=== PATIENT | female | born 1980 | race Caucasian/White ===

== ENCOUNTER 2021-06-26 03:29 | Inpatient (IN) | payer OTHER ==
[2021-06-26] VITALS (7 sets, daily range): BP systolic 102–127; BP diastolic 65–80
[~2021-06-26] VITALS: Ht 172 cm; Wt 75.3 kg
[2021-06-26] MEDS ORDERED: LACTATED RINGERS 1,000 ML IV ONE ×4 (04:00→06:45)
[2021-06-26] MEDS ORDERED: ACETAMINOPHEN 500 MG TAB (TYLENOL) PO PRN (04:00)
[2021-06-26 04:03] LABS: BASOPHILS # (AUTO) 0.1 10^3/uL (0.0-0.1); BASOPHILS % (AUTO) 1 % (0-10); EOSINOPHILS # (AUTO) 0.1 10^3/uL (0.0-0.3); EOSINOPHILS % (AUTO) 1 % (0-10); HEMATOCRIT 33 % (35-52); HEMOGLOBIN 9.4 g/dL (11.5-16.0); LYMPHOCYTES # (AUTO) 4.2 10^3/uL (1.0-4.0); LYMPHOCYTES % (AUTO) 25 % (12-44); MEAN CORPUSCULAR HEMOGLOBIN 19 pg (25-34); MEAN CORPUSCULAR HGB CONC 29 g/dL (32-36); MEAN CORPUSCULAR VOLUME 67 fL (80-99); MEAN PLATELET VOLUME 9.6 fL (9.0-12.2); MONOCYTES # (AUTO) 1.4 10^3/uL (0.0-1.0); MONOCYTES % (AUTO) 8 % (0-12); NEUTROPHILS # (AUTO) 10.9 10^3/uL (1.8-7.8); NEUTROPHILS % (AUTO) 65 % (42-75); PLATELET COUNT 432 10^3/uL (130-400); WHITE BLOOD COUNT 16.7 10^3/uL (4.3-11.0)
--- NOTE | 2021-06-26 04:10 | ED General ---
General Chief Complaint: Abdominal/GI Problems Stated Complaint: RT SIDED ABD/CHEST PAIN COVID SYMPTOMS Nursing Triage Note: PT PRESENTS TO THE ED VIA EMS TO ROOM SEVEN WITH R SIDED ABD. PAIN AND EXERTIONAL SOB THAT HAS BEEN PROGRESSIVELY WORSENING FOR THE LAST THREE DAYS. VERBALIZES FEVER AND CHILLS, PT USED TYLENOL AT 2200 FOR A SUSPECTED FEVER TONIGHT. Source of Information: Patient History of Present Illness Date Seen by Provider: Jun 26, 2021 Time Seen by Provider: 03:27 Initial Comments PT ARRIVES VIA EMS PT HAS BEEN STAYING WITH A FRIEND, THEIR S.O. AND STEP SON PT C/O RIGHT UPPER ABDOMINAL PAIN/ RIGHT LOWER/LATERAL CHEST PAIN AND RIGHT FLANK PAIN FOR THE LAST COUPLE OF DAYS C/O NAUSEA, NO VOMITING HAS HAD DIARRHEA X 5. NO BLACK/BLOODY/TARRY STOOLS HAS LOST HER TASTE THE LAST COUPLE OF DAYS + SWEATS AND CHILLS, HAS NOT CHECKED TEMP AT ANY TIME + HEADACHE + BODY ACHES HAS HAD SOME SHORTNESS OF BREATH WITH EXERTION THE LAST COUPLE O F DAYS NO SIGNIFICANT COUGH NO SORE THROAT NO URINARY SYMPTOMS HAS HAD DECREASED APPETITE PT TOOK TYLENOL A COUPLE OF HOURS AGO, OTHERWISE HAS NOT TAKEN ANYTHING FOR SYMPTOMS AT ANY TIME PT HAS NOT RECEIVED COVID-19 VACCINE. OTHERS IN HOME ARE NOT ILL LMP SOMETIME IN MAY, HAS HAD BTL. DENIES ANY MEDICAL PROBLEMS, BUT NEVER GOES TO PCP: NONE--MOVED HERE 2 YEARS AGO FROM [place] AND HAS NEVER ESTABLISHED WITH A DR MURRAY Allergies and Home Medications Allergies Coded Allergies: aspirin (Verified Allergy, Unknown, 06/26/21) codeine (Verified Allergy, Unknown, 06/26/21) Patient Home Medication List Home Medication List Reviewed: Yes Review of Systems Review of Systems Constitutional: see HPI, chills, diaphoresis, malaise, weakness EENTM: see HPI, nose congestion Respiratory: see HPI, dyspnea on exertion Cardiovascular: see HPI, chest pain; No edema, No syncope Gastrointestinal: see HPI, abdominal pain, diarrhea, loss of appetite, nausea; No vomiting Genitourinary: no symptoms reported : No LMP: May 13, 2021 Musculoskeletal: see HPI, back pain Skin: no symptoms reported; No rash Psychiatric/Neurological: See HPI, Headache Hematologic/Lymphatic: No Symptoms Reported Immunological/Allergic: no symptoms reported Past Spugxku-Qidieb-Qqbkld Hx Patient Social History Tobacco Use?: Yes (1 PPD) Tobacco type used: Cigarettes Smoking Status: Current Everyday Smoker Substance use?: Yes Substance type: Marijuana Substance frequency: Once in a while Alcohol Use?: No Past Medical History Surgery/Hospitalization HX: BTL 2002 Surgeries: Yes Tubal Ligation Respiratory: No Cardiac: No Neurological: No Last Menstrual Period: May 13, 2021 Reproductive Disorders: No [facility] History: Tubal Ligation Genitourinary: No Gastrointestinal: No Musculoskeletal: No Endocrine: No HEENT: Yes (POOR DENTITION) Cancer: No Psychosocial: No Integumentary: No Blood Disorders: No Physical Exam Vital Signs Vital Signs - First Documented 06/26/21 03:30 Temp 37.8 Pulse 124 Resp 22 B/P (MAP) 116/91 (99) Pulse Ox 100 O2 Delivery Room Air Capillary Refill : Less Than 3 Seconds Height, Weight, BMI Height: '" Weight: lbs. oz. kg; 22.00 BMI Method: General Appearance: No Apparent Distress, WD/WN, Other (UNKEMPT, DIRTY, MALODOROUS) HEENT: Other (POOR DENTITION WITH MULTIPLE MISSING TEETH) Neck: Normal Inspection Respiratory: Normal Breath Sounds, No Accessory Muscle Use, No Respiratory Distress, Other (RIGHT LOWER CHEST/RIB TENDERNESS--ANTERIOR/LATERAL/POSTERIOR) Cardiovascular: No Edema, No JVD, No Murmur, Normal Peripheral Pulses, Tachycardia (130) Gastrointestinal: Normal Bowel Sounds, No Organomegaly, No Pulsatile Mass, Soft, Tenderness (DIFFUSE UPPER ABDOMINAL TENDERNESS, MOST TENDER IN EPIGASTRIC AND RIGHT UPPER QUADRANT, AND ALSO TENDERNESS TO RIGHT FLANK) Back: No Vertebral Tenderness, CVA Tenderness (R) Extremity: Normal Range of Motion, No Pedal Edema Neurologic/Psychiatric: Alert, Oriented x3, No Motor/Sensory Deficits, Normal Mood/Affect, adult and pediatric neurologist II-XII Norm as Tested Skin: Normal Color, Warm/Dry, Tattoos/Piercings Focused Exam Sepsis Stage: Severe Sepsis Possible Source: GI Tract/Intra-Abdominal Lactate Level 06/26/21 03:37: Lactic Acid Level 1.31 Time of Focused Exam: 06:30 Respiratory: Normal Breath Sounds, No Accessory Muscle Use, No Respiratory Distress Cardiovascular: Regular Rate, Rhythm, No Edema, No Murmur Skin: normal color, warm/dry Lactic Acid Level Laboratory Tests Test 06/26/21 03:37 Lactic Acid Level 1.31 MMOL/L (0.50-2.00) Within 3hrs of presentation: Admin fluids, Admin ABX, Blood cultures prior to ABX's, Focus exam, Lactate level Progress/Results/Core Measures Suspected Sepsis SIRS Temperature: Pulse: 124 Respiratory Rate: 22 Laboratory Tests 06/26/21 03:37: White Blood Count 16.7H Blood Pressure 116 /91 Mean: 99 06/26/21 03:37: Lactic Acid Level 1.31 Laboratory Tests 06/26/21 03:37: Creatinine 0.72, INR Comment 1.1, Platelet Count 432H, Total Bilirubin 0.5 Results/Orders Lab Results Laboratory Tests Test 06/26/21 03:37 06/26/21 05:11 Range/Units White Blood Count 16.7 H 4.3-11.0 10^3/uL Red Blood Count 4.93 3.80-5.11 10^6/uL Hemoglobin 9.4 L 11.5-16.0 g/dL Hematocrit 33 L 35-52 % Mean Corpuscular Volume 67 L 80-99 fL Mean Corpuscular Hemoglobin 19 L 25-34 pg Mean Corpuscular Hemoglobin Concent 29 L 32-36 g/dL Red Cell Distribution Width 18.5 H 10.0-14.5 % Platelet Count 432 H 130-400 10^3/uL Mean Platelet Volume 9.6 9.0-12.2 fL Immature Granulocyte % (Auto) 1 % Neutrophils (%) (Auto) 65 42-75 % Lymphocytes (%) (Auto) 25 12-44 % Monocytes (%) (Auto) 8 0-12 % Eosinophils (%) (Auto) 1 0-10 % Basophils (%) (Auto) 1 0-10 % Neutrophils # (Auto) 10.9 H 1.8-7.8 10^3/uL Lymphocytes # (Auto) 4.2 H 1.0-4.0 10^3/uL Monocytes # (Auto) 1.4 H 0.0-1.0 10^3/uL Eosinophils # (Auto) 0.1 0.0-0.3 10^3/uL Basophils # (Auto) 0.1 0.0-0.1 10^3/uL Immature Granulocyte # (Auto) 0.1 0.0-0.1 10^3/uL Neutrophils % (Manual) 70 % Lymphocytes % (Manual) 23 % Monocytes % (Manual) 5 % Band Neutrophils 2 % Clumped Platelets SLIGHT Polychromasia SLIGHT Hypochromasia MODERATE Microcytosis MODERATE Spherocytes SLIGHT Neeraj Cells SLIGHT Elliptocytes SLIGHT Acanthocytes SLIGHT Erythrocyte Sedimentation Rate 29 H 0-20 MM/HR Prothrombin Time 14.2 12.2-14.7 SEC INR Comment 1.1 0.8-1.4 Activated Partial Thromboplast Time 28 24-35 SEC D-Dimer 1.35 H 0.00-0.49 UG/ML Sodium Level 135 135-145 MMOL/L Potassium Level 3.8 3.6-5.0 MMOL/L Chloride Level 102 98-107 MMOL/L Carbon Dioxide Level 24 21-32 MMOL/L Anion Gap 9 5-14 MMOL/L Blood Urea Nitrogen 14 7-18 MG/DL Creatinine 0.72 0.60-1.30 MG/DL Estimat Glomerular Filtration Rate 90 BUN/Creatinine Ratio 19 Glucose Level 110 H 70-105 MG/DL Lactic Acid Level 1.31 0.50-2.00 MMOL/L Calcium Level 9.9 8.5-10.1 MG/DL Corrected Calcium 10.0 8.5-10.1 MG/DL Magnesium Level 2.3 1.6-2.4 MG/DL Total Bilirubin 0.5 0.1-1.0 MG/DL Aspartate Amino Transf (AST/SGOT) 23 5-34 U/L Alanine Aminotransferase (ALT/SGPT) 23 0-55 U/L Alkaline Phosphatase 109 40-136 U/L Lactate Dehydrogenase 212 125-220 U/L Troponin I < 0.028 <0.028 NG/ML C-Reactive Protein High Sensitivity 15.93 H 0.00-0.50 MG/DL Total Protein 8.0 6.4-8.2 GM/DL Albumin 3.9 3.2-4.5 GM/DL Amylase Level 36 25-125 U/L Lipase 31 8-78 U/L Procalcitonin 0.15 H <0.10 NG/ML Serum Test, Qualitative NEGATIVE NEGATIVE Serum Alcohol < 10 <10 MG/DL SARS-CoV-2 RNA (RT-PCR) Not Detected Not Detecte Urine Color YELLOW Urine Clarity CLEAR Urine pH 6.0 5-9 Urine Specific [place] <=1.005 1.016-1.022 Urine Protein NEGATIVE NEGATIVE Urine Glucose (UA) NEGATIVE NEGATIVE Urine Ketones NEGATIVE NEGATIVE Urine Nitrite NEGATIVE NEGATIVE Urine Bilirubin NEGATIVE NEGATIVE Urine Urobilinogen 0.2 < = 1.0 MG/DL Urine Leukocyte Esterase 1+ H NEGATIVE Urine RBC (Auto) NEGATIVE NEGATIVE Urine RBC NONE /HPF Urine WBC 10-25 H /HPF Urine Squamous Epithelial Cells 0-2 /HPF Urine Crystals NONE /LPF Urine Bacteria FEW H /HPF Urine Casts NONE /LPF Urine Mucus NEGATIVE /LPF Urine Culture Indicated CULTURE PENDING Urine Opiates Screen NEGATIVE NEGATIVE Urine Oxycodone Screen NEGATIVE NEGATIVE Urine Methadone Screen NEGATIVE NEGATIVE Urine Propoxyphene Screen NEGATIVE NEGATIVE Urine Barbiturates Screen NEGATIVE NEGATIVE Ur Tricyclic Antidepressants Screen NEGATIVE NEGATIVE Urine Phencyclidine Screen NEGATIVE NEGATIVE Urine Amphetamines Screen NEGATIVE NEGATIVE Urine Methamphetamines Screen NEGATIVE NEGATIVE Urine Benzodiazepines Screen NEGATIVE NEGATIVE Urine Cocaine Screen NEGATIVE NEGATIVE Urine Cannabinoids Screen NEGATIVE NEGATIVE My Orders Orders - DILCIA MANLEY DO Ed Iv/Invasive Line Start (06/26/21 03:46) Monitor-Rhythm Ecg Trace Only (06/26/21 03:46) Cbc With Automated Diff (06/26/21 03:46) Comprehensive Metabolic Panel (06/26/21 03:46) Fibrin Degradation Products (06/26/21 03:46) Procalcitonin (Pct) (06/26/21 03:46) Hs C Reactive Protein (06/26/21 03:46) Erythrocyte Sedimentation Rate (06/26/21 03:46) LDH (06/26/21 03:46) Blood Culture (06/26/21 03:46) Chest 1 View, Ap/Pa Only (06/26/21 03:46) Covid 19 Inhouse Test (06/26/21 03:46) Sputum Culture (06/26/21 03:46) Urinalysis (06/26/21 03:46) Urine Culture (06/26/21 03:46) Protime With Inr (06/26/21 03:46) Partial Thromboplastin Time (06/26/21 03:46) Acetaminophen Tablet (Tylenol Tablet) (06/26/21 04:00) Ed Iv/Invasive Line Start (06/26/21 03:46) Vital Signs Adult Sepsis Patie Q15M (06/26/21 03:46) Remove Rings In Anticipation O (06/26/21 03:46) Lactic Acid Analyzer (06/26/21 03:46) Lactated Ringers (Lr 1000 Ml Iv Solution (06/26/21 04:00) Alcohol (06/26/21 03:46) Amylase (06/26/21 03:46) Drug Screen Stat (Urine) (06/26/21 03:46) Lipase (06/26/21 03:46) Magnesium (06/26/21 03:46) Troponin I (06/26/21 03:46) Manual Differential (06/26/21 03:37) Hcg,Qualitative Serum (06/26/21 04:36) Ct Stephanie Chest/Noang Abd-Pelv W (06/26/21 05:41) Iohexol Injection (Omnipaque 350 Mg/Ml 1 (06/26/21 05:45) Received Contrast (Hold Metformin- Contr (06/26/21 05:45) Ns (Ivpb) (Sodium Chloride 0.9% Ivpb Bag (06/26/21 05:45) Ed Iv/Invasive Line Start (06/26/21 06:22) Lactated Ringers (Lr 1000 Ml Iv Solution (06/26/21 06:30) Fentanyl Inj (Sublimaze Injection) (06/26/21 06:30) Medications Given in ED Current Medications Medications Dose Ordered Sig/Santiago Route Start Time Stop Time Status Last Admin Dose Admin Acetaminophen 1,000 mg ONCE PRN PO 06/26/21 04:00 06/26/21 04:01 DC 06/26/21 03:57 1,000 MG Fentanyl Citrate 50 mcg ONCE ONCE IVP 06/26/21 06:30 06/26/21 06:31 DC 06/26/21 06:36 50 MCG Iohexol 100 ml ONCE ONCE IV 06/26/21 05:45 06/26/21 05:50 DC 06/26/21 06:08 100 ML Lactated Ringer's 1,000 ml @ 0 mls/hr Q0M ONCE IV 06/26/21 04:00 06/26/21 04:01 DC 06/26/21 03:57 1,000 MLS/HR Lactated Ringer's 1,000 ml @ 0 mls/hr Q0M ONCE IV 06/26/21 06:30 06/26/21 06:31 DC 06/26/21 06:37 1,000 MLS/HR Sodium Chloride 100 ml ONCE ONCE IV 06/26/21 05:45 06/26/21 05:50 DC 06/26/21 06:08 100 ML Vital Signs/I&O 06/26/21 06/26/21 03:30 03:57 Temp 37.8 37.8 Pulse 124 Resp 22 B/P (MAP) 116/91 (99) Pulse Ox 100 O2 Delivery Room Air Capillary Refill : Less Than 3 Seconds Blood Pressure Mean: 99 Progress Note : Progress Note PLACED IN ISOLATION ROOM PPE WORN AT ALL TIMES COVID-19 TESTING PERFORMED O2 SAT 100% ON ROOM AIR GIVEN IV FLUIDS AND TYLENOL ON ARRIVAL PT DID HAVE DROP IN BP INTO 80'S, AND AN ADDITIONAL 2 LITERS OF FLUID WERE GIVEN BP UP TO > 100 SYSTOLIC BEFORE 2ND LITER HAD INFUSED, AND HEART RATE DOWN TO LESS THAN 100 BP 115/70, HR 75, O2 SAT 100% PRIOR TO TRANSFER TO THE FLOOR GAVE FENTANYL FOR PAIN GIVEN ZOSYN Diagnostic Imaging Comments CXR--PER RADIOLOGIST REPORT AT 0647 IMPRESSION: 1. No acute radiographic abnormality in the chest. CT ANGIOGRAM CHEST/ABDOMEN AND PELVIS--PER RADIOLOGIST REPORT AT 0712 IMPRESSION: 1. Diffuse gallbladder wall thickening. Recommend correlation with gallbladder ultrasound or other findings of acute cholecystitis. 2. No findings of pulmonary embolus or other acute abnormality in the chest. Reviewed: Reviewed by Vt Departure Communication (Admissions) 0627--SPOKE WITH DR. GRIDER, SURGEON MANAGER CHANGE. ACCEPTS PT FOR ADMIT. ORDERS NOTED 0647--UPDATED DR. GRIDER ON PT'S CONDITION. Impression Primary Impression: Acute cholecystitis Additional Impression: Severe sepsis Disposition: ADMITTED INPATIENT Condition: Stable Admissions Decision to Admit Reason: Admit from ER (General) Decision to Admit/Date: Jun 26, 2021 Time/Decision to Admit Time: 06:30 DILCIA MANLEY DO Jun 26, 2021 04:10
[2021-06-26 04:11] LABS: FIBRIN DEGRADATION PRODUCTS 1.35 UG/ML (0.00-0.49); INR 1.1 (0.8-1.4); PROTHROMBIN TIME PATIENT 14.2 SEC (12.2-14.7)
[2021-06-26 04:20] LABS: ALANINE AMINOTRANSFERASE 23 U/L (0-55); ALBUMIN 3.9 GM/DL (3.2-4.5); ALKALINE PHOSPHATASE 109 U/L (40-136); AMYLASE 36 U/L (25-125); BILIRUBIN,TOTAL 0.5 MG/DL (0.1-1.0); BUN/CREATININE RATIO 19; CALCIUM 9.9 MG/DL (8.5-10.1); CARBON DIOXIDE 24 MMOL/L (21-32); CHLORIDE 102 MMOL/L (98-107); CREATININE SERUM 0.72 MG/DL (0.60-1.30); GFR ESTIMATED 90; GLUCOSE 110 MG/DL (70-105); LIPASE 31 U/L (8-78); MAGNESIUM 2.3 MG/DL (1.6-2.4); POTASSIUM 3.8 MMOL/L (3.6-5.0); SODIUM 135 MMOL/L (135-145)
[2021-06-26 04:39] LABS: BAND NEUTROPHILS 2 %; HYPOCHROMASIA MODERATE; LYMPHOCYTES % (MANUAL) 23 %; MICROCYTOSIS MODERATE; MONOCYTES % (MANUAL) 5 %; NEUTROPHILS % (MANUAL) 70 %; PLATELET CLUMPS SLIGHT; POLYCHROMASIA SLIGHT; SPHEROCYTES SLIGHT
[2021-06-26 04:40] LABS: ACANTHOCYTES SLIGHT; BURR CELLS SLIGHT; ELLIPT/OVALOCYTES SLIGHT
[2021-06-26 05:01] LABS: ERYTHROCYTE SEDIMENTATION RATE 29 MM/HR (0-20)
[2021-06-26 05:21] LABS: BILIRUBIN,URINE NEGATIVE (NEGATIVE); CLARITY,URINE CLEAR; COLOR,URINE YELLOW; GLUCOSE, URINE (UA) NEGATIVE (NEGATIVE); KETONES,URINE NEGATIVE (NEGATIVE); LEUKOCYTE ESTERASE ,URINE 1+ (NEGATIVE); NITRITE,URINE NEGATIVE (NEGATIVE); PROTEIN,URINE NEGATIVE (NEGATIVE)
[2021-06-26 05:28] LABS: BACTERIA,URINE FEW /HPF; SQUAMOUS EPITHELIAL CELL,UR 0-2 /HPF
[2021-06-26 05:33] LABS: AMPHETAMINE SCREEN, URINE NEGATIVE (NEGATIVE); BARBITURATE SCREEN URINE NEGATIVE (NEGATIVE); BENZODIAZEPINES SCREEN URINE NEGATIVE (NEGATIVE); CANNABINOID SCREEN, URINE NEGATIVE (NEGATIVE); COCAINE SCREEN URINE NEGATIVE (NEGATIVE); METHADONE STAT NEGATIVE (NEGATIVE); METHAMPHETAMINE SCREEN URINE S NEGATIVE (NEGATIVE); OPIATE SCREEN URINE NEGATIVE (NEGATIVE); OXYCODONE STAT NEGATIVE (NEGATIVE); PROPOXYPHENE STAT NEGATIVE (NEGATIVE); TRICYCLIC ANTIDEPRESSANTS SCRE NEGATIVE (NEGATIVE)
[2021-06-26] MEDS ORDERED: IOHEXOL 350 MG/ML 100 ML (OMNIPAQUE 350) VIAL IV ONE (05:45)
[2021-06-26] MEDS ORDERED: HOLD METFORMIN - RECEIVED CONTRAST 20 ML VIAL IV SCH (05:45)
[2021-06-26] MEDS ORDERED: NS 100 ML (IVPB) BAG IV ONE (05:45)
[2021-06-26] MEDS ORDERED: fentaNYL INJ 100 MCG/2 ML AMP IVP ONE (06:30)
--- NOTE | 2021-06-26 06:38 | Diagnostic Imaging Report ---
EXAMINATION: Chest 1 view HISTORY: fever COMPARISON: CT chest 06/26/2021 FINDINGS: Heart size and pulmonary vasculature are normal. The lungs are clear without consolidation, pleural effusion, or pneumothorax. The osseous structures are intact. IMPRESSION: 1. No acute radiographic abnormality in the chest. Dictated by: Dictated on workstation # [id number]
[2021-06-26] MEDS ORDERED: PIPERACILLIN SODIUM/TAZOBACTAM 4.5 GM in NS (IVPB) 100 ML IV ONE (06:45)
--- NOTE | 2021-06-26 07:07 | Diagnostic Imaging Report ---
EXAMINATION: CT angiography of the chest, CT of the abdomen and pelvis. TECHNIQUE: Contrast enhanced thin section helical images were obtained through the chest, abdomen and pelvis with intravenous contrast timed for the optimal opacification of the arterial structures of the chest per CTA protocol. Post-processing, reconstructions and interpretation of angiographic images of the vessels was performed. 3D MIP reconstructions were performed and reviewed. All CT scans use one or more of the following dose optimizing techniques: automated exposure control, MA and/or KvP adjustment based on a patient size and exam type, or iterative reconstruction. HISTORY: RIGHT SIDED PAIN , FEVER COMPARISON: None available. FINDINGS: Vascular: No filling defects within the pulmonary arteries. Thoracic aorta is normal in caliber. Thyroid: The thyroid is normal. Mediastinum: Heart size is normal without significant pericardial effusion. No suspicious lymphadenopathy. Lungs and airways: The lungs are clear without consolidation, pleural effusion, or pneumothorax. Minimal atelectasis in the lung bases. The airways are normal. Solid organs: The liver is normal without focal lesion. There is diffuse gallbladder wall thickening. There is no biliary ductal dilation. Pancreas is normal. Spleen is normal. Adrenal glands are normal. The kidneys are normal without hydronephrosis. Bowel: The stomach and small bowel are normal without obstruction. The colon and appendix are normal. Peritoneum: There is no intraperitoneal free fluid or free air. No suspicious lymphadenopathy. Vasculature: Normal without aneurysm. Musculoskeletal: No suspicious osseous lesion or compression fracture. Pelvis: The uterus is unremarkable. Suggestion of a right corpus luteum cyst. The urinary bladder is normal. IMPRESSION: 1. Diffuse gallbladder wall thickening. Recommend correlation with gallbladder ultrasound or other findings of acute cholecystitis. 2. No findings of pulmonary embolus or other acute abnormality in the chest. Dictated by: Dictated on workstation # [id number]
[2021-06-26] MEDS ORDERED: fentaNYL INJ 100 MCG/2 ML AMP IV PRN (08:30)
[2021-06-26] MEDS ORDERED: ONDANSETRON 4 MG/2 ML (SDV) Z0FRAN IV PRN (08:30)
[2021-06-26] MEDS ORDERED: NOREPINEPHRINE 8 MG/250 ML 250 ML IV SCH (08:30)
[2021-06-26] MEDS ORDERED: CATHETER FLUSH 10 ML SYR IV PRN (08:30)
[2021-06-26] MEDS ORDERED: EPINEPHrine 1 MG INJECTION 4 MG in NS (IVPB) 248 ML IV SCH (08:30)
[2021-06-26] MEDS: VASOPRESSIN INJECTION 20 UNIT in NS (IVPB) 100 ML IV SCH ×2 (08:40→16:45)
[2021-06-26] MEDS: LACTATED RINGERS 1,000 ML IV SCH ×3 (08:40→16:45)
--- NOTE | 2021-06-26 09:34 | Tele-ICU Progress Note ---
Progress Note video rounds completed 40 y/o f admitted with acute cholecystitis PE: comfortable pulse 73 BP: 116/75 WBC 16.7 Hgb: 9.4 Plts: 42 Started on zosyn PLAN: will add lovenox for DVT px awaiting surgical orderly. Focused Exam Lactate Level 06/26/21 03:37: Lactic Acid Level 1.31 06/26/21 09:11: Height, Weight, BMI Height: '" Weight: lbs. oz. kg; 22.00 BMI Method: Time of Focused Exam: 06:30 Lactic Acid Level Laboratory Tests Test 06/26/21 09:11 KATLIN MCKINLEY MD Jun 26, 2021 09:34
[2021-06-26] MEDS: ENOXAPARIN 40 MG/0.4 ML (LOVENOX) SYR SC SCH (10:13)
[2021-06-26] MEDS ORDERED: HYDROcodone/APAP 7.5 MG/325 MG (LORTAB, LORCET PLUS) TABLET PO PRN (11:00)
--- NOTE | 2021-06-26 11:47 | HISTORY AND PHYSICAL ---
DATE OF SERVICE: DATE OF ADMISSION: 06/26/2021. HISTORY OF PRESENT ILLNESS: The patient is a 40-year-old female, who presented to the Emergency Department with a 3-day history of right upper abdominal quadrant pain with associated nausea; however, no vomiting. She states that the pain worsened and she also did have some mild fevers at home. A CT scan was performed, which did show a significant gallbladder wall dilatation consistent with an acute cholecystitis. Upon further questioning, she reports that she has not had any similar type of symptoms before in the past. She states that she is having normal bowel movements. PAST MEDICAL HISTORY: None. PAST SURGICAL HISTORY: Tubal ligation. ALLERGIES: ASPIRIN, CODEINE. MEDICATIONS: None. SOCIAL HISTORY: Positive smoke, negative alcohol. FAMILY HISTORY: Noncontributory. VITAL SIGNS: Temperature 36.4, blood pressure 124/74, pulse 78, respirations 10, pulse ox 100% on room air. REVIEW OF SYSTEMS: Well-nourished female currently in no acute distress. She is not experiencing any shortness of breath or difficulty breathing. No chest pain, palpitations, diaphoresis. No nausea, vomiting, mild loose stools. No red blood per rectum, no dark tarry stools. Mild fevers at home, none since admission. No recent inadvertent weight loss. PHYSICAL EXAMINATION: CHEST: Good breath sounds bilaterally. HEART: Regular, no murmurs. EXTREMITIES: No lower extremity edema, negative Homans sign. HEENT: No scleral icterus. NECK: No cervical lymphadenopathy. ABDOMEN: Soft, nondistended. There is pain in the right upper abdominal quadrant with voluntary guarding, no rebound. SKIN: Warm, dry. LABORATORY DATA: WBC 16.7, hemoglobin 9.4, hematocrit 33, platelets 432. BUN 14, creatinine 0.72, total bilirubin 0.5. ASSESSMENT AND PLAN: A 40-year-old female with acute cholecystitis. The natural history of gallbladder disease was explained to the patient. RECOMMENDATION: At this time is to proceed with bowel rest with a clear liquid diet as well as IV antibiotics. Once the inflammation has subsided and she is less symptomatic, she may then proceed with a laparoscopic cholecystectomy on this admission versus as an outpatient. Job ID: [id number] DocumentID: [id number] Dictated Date: 06/26/2021 11:03:30 Outpatient Physical Therapist Assistant Date: 06/26/2021 11:46:37 Dictated By: OLLIE GRIDER MD
[2021-06-26] MEDS ORDERED: inSUlin ASPART (NovoLOG) 1 UNIT/0.01 ML (CHARGE PER UNIT) SC SCH (12:00)
[2021-06-26] MEDS: PIPERACILLIN/TAZO 4.5 GM/NS 100 ML IV SCH ×4 (13:52→21:11)
[2021-06-27] MEDS: LACTATED RINGERS 1,000 ML IV SCH ×4 (00:55→20:59)
[2021-06-27] MEDS: ACETAMINOPHEN 500 MG TAB (TYLENOL) PO PRN ×3 (01:21→15:53)
[2021-06-27 03:27] VITALS: BP 120/73
[2021-06-27] MEDS: PIPERACILLIN/TAZO 4.5 GM/NS 100 ML IV SCH ×6 (04:59→20:59)
[2021-06-27] MEDS ORDERED: MAGNESIUM 1 GM/100 ML IVPB 100 ML IV SCH (06:00)
[2021-06-27] MEDS ORDERED: POTASSIUM CL 10MEQ/50ML IVPB 50 ML IV SCH (06:00)
[2021-06-27] MEDS ORDERED: KCL 20 MEQ TAB (K-DUR) PO SCH (06:00)
[2021-06-27 06:53] LABS: BASOPHILS % (AUTO) 0 % (0-10); EOSINOPHILS # (AUTO) 0.1 10^3/uL (0.0-0.3); EOSINOPHILS % (AUTO) 1 % (0-10); HEMATOCRIT 29 % (35-52); HEMOGLOBIN 8.2 g/dL (11.5-16.0); LYMPHOCYTES # (AUTO) 2.8 10^3/uL (1.0-4.0); LYMPHOCYTES % (AUTO) 29 % (12-44); MEAN CORPUSCULAR HEMOGLOBIN 19 pg (25-34); MEAN CORPUSCULAR HGB CONC 28 g/dL (32-36); MEAN CORPUSCULAR VOLUME 69 fL (80-99); MEAN PLATELET VOLUME 9.9 fL (9.0-12.2); MONOCYTES # (AUTO) 0.5 10^3/uL (0.0-1.0); MONOCYTES % (AUTO) 5 % (0-12); NEUTROPHILS # (AUTO) 6.2 10^3/uL (1.8-7.8); NEUTROPHILS % (AUTO) 64 % (42-75); PLATELET COUNT 297 10^3/uL (130-400); WHITE BLOOD COUNT 9.7 10^3/uL (4.3-11.0)
[2021-06-27 07:03] LABS: ALBUMIN 3.2 GM/DL (3.2-4.5)
[2021-06-27 07:04] LABS: CALCIUM 8.9 MG/DL (8.5-10.1)
[2021-06-27 07:06] LABS: TOTAL PROTEIN 6.3 GM/DL (6.4-8.2)
[2021-06-27 07:08] LABS: BILIRUBIN,TOTAL 0.5 MG/DL (0.1-1.0)
[2021-06-27 07:09] LABS: CREATININE SERUM 0.59 MG/DL (0.60-1.30)
[2021-06-27 08:00] VITALS: BP 137/84
[2021-06-27] MEDS: ENOXAPARIN 40 MG/0.4 ML (LOVENOX) SYR SC SCH (09:27)
--- NOTE | 2021-06-27 10:46 | Progress Note ---
Subjective Date Seen by a Provider: Jun 27, 2021 Time Seen by a Provider: 09:40 Subjective/Events-last exam Patient seen with Dr. Gutierrez. Patient reports some mild discomfort. No N/V. Did report some diarrhea yesterday but has not had BM today. No fever/chills. Tolerating clear liquid diet. Focused Exam Lactate Level 06/26/21 03:37: Lactic Acid Level 1.31 06/26/21 09:11: Lactic Acid Level 1.49 Time of Focused Exam: 06:30 Objective Exam Vital Signs Date Time Temp Pulse Resp B/P (MAP) Pulse Ox O2 Delivery O2 Flow Rate FiO2 06/27/21 08:00 36.9 82 16 137/84 (101) 100 Room Air 06/27/21 08:00 Room Air 06/27/21 03:27 35.8 71 16 120/73 (89) 98 06/26/21 23:25 36.8 87 16 102/65 (77) 100 06/26/21 20:45 97 Room Air 06/26/21 20:00 37.2 85 16 119/76 (90) 97 06/26/21 16:00 36.9 84 16 115/75 (88) 100 06/26/21 12:00 37.1 90 18 127/72 (90) 100 Room Air I & O 06/27/21 07:00 Intake Total 4230 ml Output Total 1125 ml Balance 3105 ml Capillary Refill : Less Than 3 Seconds General Appearance: No Apparent Distress, WD/WN Neck: Normal Inspection, Supple Respiratory: Normal Breath Sounds, No Accessory Muscle Use, No Respiratory Distress Cardiovascular: Regular Rate, Rhythm, No Edema Gastrointestinal: normal bowel sounds, soft, tenderness (RUQ) Extremity: Normal Inspection, Non Tender Neurologic/Psychiatric: Alert, Oriented x3 Skin: Normal Color, Warm/Dry Results Lab Laboratory Tests 06/27/21 06:30: White Blood Count 9.7, Red Blood Count 4.27, Hemoglobin 8.2L, Hematocrit 29L, Mean Corpuscular Volume 69L, Mean Corpuscular Hemoglobin 19L, Mean Corpuscular Hemoglobin Concent 28L, Red Cell Distribution Width 18.6H, Platelet Count 297, Mean Platelet Volume 9.9, Immature Granulocyte % (Auto) 0, Neutrophils (%) (Auto) 64, Lymphocytes (%) (Auto) 29, Monocytes (%) (Auto) 5, Eosinophils (%) (Auto) 1, Basophils (%) (Auto) 0, Neutrophils # (Auto) 6.2, Lymphocytes # (Auto) 2.8, Monocytes # (Auto) 0.5, Eosinophils # (Auto) 0.1, Basophils # (Auto) 0.0, Immature Granulocyte # (Auto) 0.0, Sodium Level 142, Potassium Level 4.0, Chloride Level 108H, Carbon Dioxide Level 22, Anion Gap 12, Blood Urea Nitrogen 4L, Creatinine 0.59L, Estimat Glomerular Filtration Rate 113, BUN/Creatinine Ratio 7, Glucose Level 89, Calcium Level 8.9, Corrected Calcium 9.5, Total Bilirubin 0.5, Aspartate Amino Transf (AST/SGOT) 26, Alanine Aminotransferase (ALT/SGPT) 27, Alkaline Phosphatase 84, Total Protein 6.3L, Albumin 3.2, Amylase Level 26, Lipase 16 Microbiology 06/26/21 MRSA Screen - Final, Complete MRSA not isolated 06/26/21 Urine Culture - Final, Complete >=3 Gram Positive Isolates Assessment/Plan Assessment/Plan Assess & Plan/Chief Complaint A 40 year old female with acute cholecystitis VSS WBC 9.7 Continue clear liquid diet IV fluids, pain and nausea meds, abx Once the inflammation has subsided and she is less symptomatic, she may then proceed with a laparoscopic cholecystectomy. GRECIA JIANG TRACER POWDER BLENDER Jun 27, 2021 10:46
[2021-06-27 11:40] VITALS: BP 136/86
[2021-06-27 16:06] VITALS: BP 120/77
[2021-06-27 19:18] VITALS: BP 120/79
[2021-06-27 23:30] VITALS: BP 123/67
[2021-06-28] MEDS: LACTATED RINGERS 1,000 ML IV SCH ×4 (02:58→22:13)
[2021-06-28 03:17] VITALS: BP 126/72
[2021-06-28] MEDS: ACETAMINOPHEN 500 MG TAB (TYLENOL) PO PRN ×3 (03:21→23:39)
[2021-06-28] MEDS: PIPERACILLIN/TAZO 4.5 GM/NS 100 ML IV SCH ×6 (04:46→20:56)
[2021-06-28 07:36] VITALS: BP 121/74
[2021-06-28] MEDS ORDERED: ACET325T38 PO (10:22)
[2021-06-28] MEDS: ENOXAPARIN 40 MG/0.4 ML (LOVENOX) SYR SC SCH (10:42)
--- NOTE | 2021-06-28 11:36 | Physician Query Clarification ---
PQ-Uncertain Diagnosis Admission/Discharge Admission Date: Jun 26, 2021 at 06:30 Discharge Date: Dr. Grider The medical record reflects the following clinical scenario: History/Risk Factors: acute cholecystitis Clinical Findings: T 37.8, P 124, R 22, WBC 16.7, Lactic acidosis 1.31 Treatment: IV Piperacillin Question: Is severe sepsis a clinically valid diagnosis? Severe sepsis was documented in the ER record with no further documentation in the medical record. Please document a response in Progress Note or Discharge Summary. 1. Yes, clinically valid, condition resolved. 2. No, condition ruled out. 3. Other, with explanation of clinical findings. 4. Undetermined, no explanation for clinical findings. PHYSICIAN RESPONSE Diagnosis clinically valid: No, conditon ruled out Please remember a lack of response to the above will prompt a phone page by CDI/Coding staff. In responding to this query, please exercise your independent professional judgment. The purpose of this communication is to more accurately reflect the complexity of your patients condition. The fact that a question is asked does not imply that any particular answer is desired or expected. Thank you for your timely response to this clarification. Requestors name: Artur THIS PHYSICIAN QUERY FORM IS A PERMANENT PART OF THE MEDICAL RECORD ARTUR PINO Jun 28, 2021 11:36 OLLIE GRIDER MD Jun 28, 2021 15:05
[2021-06-28 11:38] VITALS: BP 129/75
[2021-06-28] MEDS ORDERED: VANCOMYCIN 1500 MG/NS 500 ML IVPB IV NR ×2 (15:00)
[2021-06-28 16:00] VITALS: BP 121/66
--- NOTE | 2021-06-28 18:27 | Progress Note-Pre Operative ---
Pre-Operative Progress Note H&P Reviewed The H&P was reviewed, patient examined and no changes noted. Date Seen by Provider: Jun 28, 2021 Time Seen by Provider: 18:00 Date H&P Reviewed: Jun 28, 2021 Time H&P Reviewed: 18:00 Pre-Operative Diagnosis: acute calculous cholecystitis OLLIE GRIDER MD Jun 28, 2021 18:27
--- NOTE | 2021-06-28 19:26 | Progress Note ---
Subjective Date Seen by a Provider: Jun 28, 2021 Time Seen by a Provider: 18:50 Subjective/Events-last exam Patient seen with Dr. Gutierrez. Patient reports doing ok today. Tolerating clear liquid diet. Denies any N/V, Fever/chills, or abdominal pain. Focused Exam Lactate Level 06/26/21 03:37: Lactic Acid Level 1.31 06/26/21 09:11: Lactic Acid Level 1.49 Time of Focused Exam: 06:30 Objective Exam Vital Signs Date Time Temp Pulse Resp B/P (MAP) Pulse Ox O2 Delivery O2 Flow Rate FiO2 06/28/21 16:00 37.2 79 18 121/66 (84) 98 Room Air 06/28/21 11:38 37.3 77 18 129/75 (93) 97 Room Air 06/28/21 08:00 97 Room Air 06/28/21 07:36 36.9 70 18 121/74 (90) 97 Room Air 06/28/21 03:17 36.7 78 20 126/72 (90) 98 Room Air 06/27/21 23:30 37.2 74 18 123/67 (85) 97 Room Air 06/27/21 20:59 Room Air I & O 06/28/21 07:00 Intake Total 4298 ml Balance 4298 ml Capillary Refill : Less Than 3 Seconds General Appearance: No Apparent Distress, WD/WN Neck: Normal Inspection, Supple Respiratory: Normal Breath Sounds, No Accessory Muscle Use, No Respiratory Distress Cardiovascular: Regular Rate, Rhythm, No Edema Gastrointestinal: normal bowel sounds, soft, tenderness (epigastric) Extremity: Normal Inspection, Normal Range of Motion Neurologic/Psychiatric: Alert, Oriented x3 Skin: Normal Color, Warm/Dry Results Lab Microbiology 06/26/21 MRSA Screen - Final, Complete MRSA not isolated 06/26/21 Urine Culture - Final, Complete >=3 Gram Positive Isolates 06/26/21 Blood Culture - Preliminary, Resulted No growth Assessment/Plan Assessment/Plan Assess & Plan/Chief Complaint A 40 year old female with acute cholecystitis VSS Continue clear liquid diet IV fluids, pain and nausea meds, abx Will proceed with a laparoscopic cholecystectomy tomorrow GRECIA JIANG APRN Jun 28, 2021 19:25
[2021-06-28 20:00] VITALS: BP 141/65
[2021-06-28 23:30] VITALS: BP 121/55
[2021-06-29] VITALS (11 sets, daily range): BP systolic 111–141; BP diastolic 54–99
[2021-06-29] MEDS: LACTATED RINGERS 1,000 ML IV SCH ×3 (00:25→15:48)
[2021-06-29] MEDS: VANCOMYCIN INJECTION 1,000 MG in NS (IVPB) 250 ML IV SCH ×2 (02:34→15:48)
[2021-06-29] MEDS: PIPERACILLIN/TAZO 4.5 GM/NS 100 ML IV SCH ×6 (04:51→19:47)
[2021-06-29 06:11] LABS: BASOPHILS % (AUTO) 1 % (0-10); EOSINOPHILS # (AUTO) 0.1 10^3/uL (0.0-0.3); EOSINOPHILS % (AUTO) 2 % (0-10); HEMATOCRIT 27 % (35-52); HEMOGLOBIN 7.5 g/dL (11.5-16.0); LYMPHOCYTES % (AUTO) 28 % (12-44); MEAN CORPUSCULAR HEMOGLOBIN 19 pg (25-34); MEAN CORPUSCULAR HGB CONC 28 g/dL (32-36); MEAN CORPUSCULAR VOLUME 68 fL (80-99); MEAN PLATELET VOLUME 9.9 fL (9.0-12.2); MONOCYTES # (AUTO) 0.4 10^3/uL (0.0-1.0); MONOCYTES % (AUTO) 6 % (0-12); NEUTROPHILS # (AUTO) 4.6 10^3/uL (1.8-7.8); NEUTROPHILS % (AUTO) 64 % (42-75); PLATELET COUNT 304 10^3/uL (130-400); WHITE BLOOD COUNT 7.2 10^3/uL (4.3-11.0)
[2021-06-29 06:17] LABS: POTASSIUM 3.7 MMOL/L (3.6-5.0)
[2021-06-29 06:18] LABS: CALCIUM 8.6 MG/DL (8.5-10.1)
[2021-06-29 06:19] LABS: TOTAL PROTEIN 5.8 GM/DL (6.4-8.2)
[2021-06-29 06:21] LABS: BILIRUBIN,TOTAL 0.3 MG/DL (0.1-1.0)
[2021-06-29 06:23] LABS: CREATININE SERUM 0.6 MG/DL (0.60-1.30)
[2021-06-29] MEDS ORDERED: LIDOCAINE/EPI 1%-1:200,000 (XYLOCAINE) 30 ML VIAL ONE (11:51)
[2021-06-29] MEDS: ENOXAPARIN 40 MG/0.4 ML (LOVENOX) SYR SC SCH (11:59)
[2021-06-29] MEDS ORDERED: fentaNYL INJ 100 MCG/2 ML AMP ONE (12:28)
[2021-06-29] MEDS ORDERED: MIDAZOLAM 2 MG/2 ML (VERSED) VIAL ONE (12:28)
[2021-06-29] MEDS ORDERED: ONDANSETRON 4 MG/2 ML (SDV) Z0FRAN ONE (12:28)
[2021-06-29] MEDS ORDERED: LIDOCAINE PF 2% 5 ML (XYLOCAINE) VIAL ONE (12:28)
[2021-06-29] MEDS ORDERED: proPOfol 200 MG/20 ML (DIPRIVAN) VIAL IV ONE (12:28)
[2021-06-29] MEDS ORDERED: ROCURONIUM 10 MG/ML 5 ML SYRINGE IV ONE ×2 (12:28→14:07)
[2021-06-29] MEDS: LACTATED RINGERS 1,000 ML IV PRN ×2 (12:51→13:33)
[2021-06-29] MEDS ORDERED: GLYCOPYRROLATE 0.2 MG/ML (ROBINUL) 2 ML VIAL ONE (14:07)
[2021-06-29] MEDS ORDERED: NEOSTIGMINE 3 MG/3 ML VIAL ONE ×2 (14:07→14:53)
--- NOTE | 2021-06-29 14:28 | Progress Note-Post Operative ---
Post-Operative Progess Note Surgeon (s)/Gasateria Attendant (s) Surgeon OLLIE GRIDER MD Gasateria Attendant: bren ceballos NUT BLANKER OPERATOR Pre-Operative Diagnosis acute calculous cholecystitis Post-Operative Diagnosis same Procedure & Operative Findings Date of Procedure 06/29/21 Procedure Performed/Findings laparoscopic cholecystetomy Anesthesia Type get Estimated Blood Loss Estimated blood loss (mL): minimal Specimens/Packing Specimens Removed gallbladder OLLIE GRIDER MD Jun 29, 2021 14:28
[2021-06-29] MEDS ORDERED: LINE600T12 PO (14:29)
[2021-06-29] MEDS ORDERED: HYDR-3817 PO (14:29)
--- NOTE | 2021-06-29 14:30 | Discharge Inst-Surgical ---
D/C Lap Instructions-CHEO New, Converted, or Re-Newed RX: RX on Chart Follow Up Appt in 2 weeks Activity as tolerated No driving for 24 hours No driving while on pain medications Incentive Spirometry use every 2 hours while awake Regular Diet Symptoms to Report: Fever over 101 degree F, Nausea/Vomiting Infection Signs and Symptoms to report: Increased redness, Foul odor of wound, Increased drainage Bathing instructions: May shower Operative Area Clean/Dry; Keep incision clean/dry If any problems/questions: Contact your physician or go to Emergency Room OLLIE GRIDER MD Jun 29, 2021 14:30
[2021-06-29] MEDS ORDERED: SEVOFLURANE (ULTANE) 15 ML INHAL SOLN ONE (14:34)
[2021-06-29] MEDS ORDERED: KETOROLAC 30 MG/ML VIAL ONE (14:41)
[2021-06-29] MEDS ORDERED: morphine INJ 10 MG/ML 1ML (SYR OR VIAL) ONE (14:51)
--- NOTE | 2021-06-29 14:57 | Anesthesia-General Post-Op ---
General Patient Condition Mental Status/LOC: Same as Preop Cardiovascular: Satisfactory Nausea/Vomiting: Absent Respiratory: Satisfactory Pain: Controlled Complications: Absent Post Op Complications Complications None Follow Up Care/Instructions Patient Instructions None needed. Anesthesia/Patient Condition Patient Condition Patient is doing well, no complaints, stable vital signs, no apparent adverse anesthesia problems. No complications reported per nursing. PETERSON LINARES CRNA Jun 29, 2021 14:57
[2021-06-29] MEDS ORDERED: fentaNYL INJ 100 MCG/2 ML AMP IVP ONE (15:00)
[2021-06-29] MEDS ORDERED: morphine INJ 10 MG/ML 1ML (SYR OR VIAL) IVP ONE (15:00)
[2021-06-29] MEDS ORDERED: MEPERIDINE (DEMEROL) INJ 50 MG/ML IVP ONE (15:00)
[2021-06-29] MEDS ORDERED: ONDANSETRON 4 MG/2 ML (SDV) Z0FRAN IVP PRN (15:00)
--- NOTE | 2021-06-29 15:43 | OPERATIVE REPORT ---
DATE OF SERVICE: 06/29/2021 PREOPERATIVE DIAGNOSIS: Acute cholecystitis. POSTOPERATIVE DIAGNOSIS: Acute calculous cholecystitis. PROCEDURE: Laparoscopic cholecystectomy. SURGEON: Ollie Grider MD SUBWAY CONDUCTOR: Domingo Ling APRN. ANESTHESIA: General endotracheal. ESTIMATED BLOOD LOSS: Minimal. FINDINGS: Severely distended gallbladder with gallbladder wall thickening and multiple large gallstones. DISPOSITION: The patient tolerated the procedure well. INDICATIONS: The patient is a 40-year-old female who presented to the Emergency Department with 3-day history of right upper abdominal quadrant pain with associated nausea; however, no vomiting. She states that the pain also worsened at home and she also did have some mild fevers at home. CT scan was performed, which did show gallbladder wall thickening as well as dilatation of the gallbladder consistent with acute cholecystitis. She was admitted and placed on IV antibiotics due to the significant amount of inflammation. DESCRIPTION OF PROCEDURE: The patient was brought to the operating room, laid supine on the table. After adequate IV pain and sedative medications and general endotracheal intubation, the abdomen was prepped and draped in standard surgical fashion. A 0.5% Marcaine with epinephrine was used to anesthetize the overlying skin in the left upper abdominal quadrant and transverse skin incision made using 15 blade. An 0 silk suture was applied to the medial aspect incision for retraction and a Veress needle inserted with a low opening pressure of 0 mmHg and the abdomen was then insufflated to 15 mmHg pressure. The Veress needle removed, and a 5 mm XL trocar placed followed by a 5 mm 45-degree angle laparoscope visualizing the peritoneal cavity. The Veress needle removed, and a 5 mm XL trocar placed followed by a 5 mm 45-degree angle laparoscope visualizing the peritoneal cavity. A 4-quadrant abdominal exploration was performed. There was a severely distended gallbladder as well as gallbladder wall thickening and omental adhesions to the gallbladder consistent with acute cholecystitis. Under direct visualization, we then proceeded to place a supraumbilical 10 mm port after the skin and peritoneal lining were anesthetized using 0.5% Marcaine with epinephrine and a transverse skin incision made using a 15 blade. In a similar manner, a right upper abdominal quadrant 5 mm port was placed. The patient was then placed in reverse Trendelenburg position as well as plane right side up, left side down. The gallbladder was then decompressed with a laparoscopic needle with clear fluid consistent with hydrops of the gallbladder. The fundus of the gallbladder was retracted anteriorly and superiorly, and the omental adhesions were taken down using blunt dissection. The hepatoduodenal ligament was then dissected using electrocautery as well as blunt dissection using the hook instrument as well as a [place] dissector. The entire critical view of safety was identified including the triangle of Calot as well as the cystic duct and artery as only two structures going into the gallbladder as well as the cystic plate behind the proximal gallbladder. A timeout was then taken, and the cystic duct and artery were then clipped proximally and distally and cut with EndoShears. The gallbladder was then dissected off the liver bed using cautery on the hook instrument with visualization of good hemostasis as well as no leaking ducts of Luschka. The gallbladder was removed through the 10 mm port site using an EndoCatch bag. The 10 mm port site fascia and peritoneum were then closed under direct visualization using a Federico-Rosetta device and 0 Vicryl suture. The abdomen was desufflated and remaining ports removed. All skin incisions were closed using 4-0 Monocryl running subcuticular sutures. Wounds were then cleaned and covered with Dermabond. The patient tolerated the procedure well. We will admit her back to the floor and when she is tolerating clears, has good pain control with oral pain medications, ambulating well, we will discharge her home. She did have positive blood cultures for Staph epidermidis, and her two new prescriptions will be pain medication as well as linezolid 600 mg b.i.d. for the next week. Job ID: [id number] DocumentID: [id number] Dictated Date: 06/29/2021 14:37:25 Bag Filler Machine Operator Date: 06/29/2021 15:42:44 Dictated By: OLLIE GRIDER MD [facility] & CLINICMargarette
[2021-06-29] MEDS: ACETAMINOPHEN 500 MG TAB (TYLENOL) PO PRN (19:46)
[2021-06-30] VITALS (7 sets, daily range): BP systolic 99–144; BP diastolic 56–87
[2021-06-30] MEDS: LACTATED RINGERS 1,000 ML IV SCH ×2 (00:36→10:59)
[2021-06-30] MEDS: VANCOMYCIN INJECTION 1,000 MG in NS (IVPB) 250 ML IV SCH (03:54)
[2021-06-30] MEDS: PIPERACILLIN/TAZO 4.5 GM/NS 100 ML IV SCH ×4 (05:30→14:10)
[2021-06-30] MEDS: ENOXAPARIN 40 MG/0.4 ML (LOVENOX) SYR SC SCH (09:34)
[2021-06-30] MEDS: ACETAMINOPHEN 500 MG TAB (TYLENOL) PO PRN (09:45)
[2021-06-30] MEDS ORDERED: LACTATED RINGERS 1,000 ML IV SCH (13:15)
[2021-06-30] MEDS ORDERED: TROUGH ORDER-PHARMACY XX NR (14:00)
[2021-06-30 14:32] LABS: BASOPHILS % (AUTO) 0 % (0-10); EOSINOPHILS % (AUTO) 0 % (0-10); HEMATOCRIT 26 % (35-52); HEMOGLOBIN 7.3 g/dL (11.5-16.0); LYMPHOCYTES # (AUTO) 2.5 10^3/uL (1.0-4.0); LYMPHOCYTES % (AUTO) 20 % (12-44); MEAN CORPUSCULAR HEMOGLOBIN 19 pg (25-34); MEAN CORPUSCULAR HGB CONC 29 g/dL (32-36); MEAN CORPUSCULAR VOLUME 68 fL (80-99); MEAN PLATELET VOLUME 9.6 fL (9.0-12.2); MONOCYTES # (AUTO) 0.7 10^3/uL (0.0-1.0); MONOCYTES % (AUTO) 6 % (0-12); NEUTROPHILS # (AUTO) 9.1 10^3/uL (1.8-7.8); NEUTROPHILS % (AUTO) 73 % (42-75); PLATELET COUNT 383 10^3/uL (130-400); WHITE BLOOD COUNT 12.4 10^3/uL (4.3-11.0)
== END 2021-06-30 17:05 | disposition home or self-care (01) | DRG 419 ==
LOC: ER 03:35 → ICU 06:30 → 4TH 11:45
PROVIDERS: ADMIT Surgery; ATTEND Surgery
PROC: 0FT44ZZ Resection of Gallbladder, Percutaneous Endoscopic Approach (ICD-10-PCS; principal; 2021-06-29 12:51)
DX: K80.00 Calculus of gallbladder with acute cholecystitis without obstruction (principal); Z20.822 Contact with and (suspected) exposure to COVID-19; F17.210 Nicotine dependence, cigarettes, uncomplicated; Z88.6 Allergy status to analgesic agent
CPT/HCPCS: 36415; 71045; 71275; 74177; 80053; 80202; 80306; 80320; 81000; 82150; 83605; 83615; 83690; 83735; 84145; 84484; 84703; 85007; 85025; 85027; 85379; 85610; 85652; 85730; 86141; 87040; 87077; 87081; 87088; 87186; 87636; 93041; 96361; 96365; 96375